=== PATIENT | female | born 2000 | race Caucasian/White ===

== ENCOUNTER 2020-05-29 12:14 | Emergency (ER) | payer MEDICAID ==
[~2020-05-29] VITALS: Ht 160 cm; Wt 65.9 kg
== END 2020-05-29 13:27 | disposition home or self-care (01) ==
LOC: ER 12:14
DX: R53.83 Other fatigue (principal); R51.9 Headache, unspecified; R05 Cough; M79.10 Myalgia, unspecified site; Z20.828 Contact with and (suspected) exposure to other viral communicable diseases; Z88.1 Allergy status to other antibiotic agents
CPT/HCPCS: 36415; 87635; 99283

== ENCOUNTER 2023-04-22 22:24 | Emergency (ER) | payer MEDICAID ==
[~2023-04-22] VITALS: Ht 157.5 cm; Wt 80.0 kg
[2023-04-22 22:26] VITALS: TEMP 98.5
[2023-04-22 22:45] LABS: BILIRUBIN,URINE NEGATIVE (Neg); CLARITY,URINE SLIGHTLY CLOUDY (Clear); COLOR,URINE YELLOW (Yellow); GLUCOSE, URINE NEGATIVE (Neg); KETONES,URINE TRACE mg/dl (Neg); LEUKOCYTE ESTERASE ,URINE NEGATIVE (Neg); NITRITES, URINE NEGATIVE (Neg); OCCULT BLOOD,URINE NEGATIVE (Neg); PROTEIN,URINE NEGATIVE (Neg); UROBILINOGEN,URINE 0.2 E.U/dL (0.2-1.0)
[2023-04-22 22:46] LABS: UA COLLECTION TYPE CLN CATCH MIDSTREAM; URINE HCG NEGATIVE (NEG)
[2023-04-22 22:52] LABS: BACTERIA,URINE FEW /HPF (Neg); MUCUS STRANDS MANY /LPF (Neg); RBC,URINE 0-2 /HPF (0-2); SQUAMOUS EPITHELIAL CELL,UR MODERATE /LPF (FEW); WBC,URINE 0-4 /HPF (0-4)
--- NOTE | 2023-04-22 22:56 | NUR ---
MSE COMPLETED BY DR WALTER
[2023-04-22 23:14] LABS: EOSINOPHILS # (AUTO) 0.1 X10'3 (0-0.9); HEMOGLOBIN 12.7 g/dl (12.0-16.0)
[2023-04-22 23:16] LABS: BASOPHILS % (AUTO) 0.5 % (0-1); EOSINOPHILS % (AUTO) 0.7 % (0-6); HEMATOCRIT 37.4 % (35.0-45.0); LYMPHOCYTES # (AUTO) 2.9 X10'3 (1.1-4.8); LYMPHOCYTES % (AUTO) 34.9 % (21-51); MEAN CORPUSCULAR HEMOGLOBIN 29.8 PG (27.0-31.0); MEAN CORPUSCULAR HGB CONC 34.1 g/dL (33.0-36.5); MEAN CORPUSCULAR VOLUME 87.4 FL (78-98); MEAN PLATELET VOLUME 10.4 FL (7.4-10.4); MONOCYTES # (AUTO) 0.6 X10'3 (0-0.9); MONOCYTES % (AUTO) 7.6 % (2-12); NEUTROPHILS # (AUTO) 4.6 X10'3 (1.8-7.7); NEUTROPHILS % (AUTO) 56.3 % (42-75); PLATELET COUNT 179 X10'3 (140-440); RED BLOOD COUNT 4.28 X10'6 (4.20-5.60); RED CELL DISTRIBUTION WIDTH 13.4 % (11.5-14.5); WHITE BLOOD COUNT 8.2 X10'3 (4.5-11.0)
[2023-04-22 23:20] LABS: APTT 31 SECONDS (22-32); PROTHROMBIN TIME 10.7 SECONDS (9.0-12.0)
[2023-04-22 23:23] LABS: ALANINE AMINOTRANSFERASE 28 U/L (12-78); ALBUMIN/GLOBULIN RATIO 1.1 (1.1-1.5); ALKALINE PHOSPHATASE 88 IU/L (46-116); ANION GAP 8 (8-16); ASPARTATE AMINO TRANSFERASE 28 U/L (10-37); BILIRUBIN,TOTAL 0.2 MG/DL (0.1-1.0); BLOOD UREA NITROGEN 16 MG/DL (7-18); BUN/CREATININE RATIO 16.8 (10.0-20.0); CHLORIDE 103 MMOL/L (99-107); CREATININE 0.95 MG/DL (0.40-0.90); GLUCOSE 113 MG/DL (70-104); POTASSIUM 3.9 MMOL/L (3.5-5.1); SODIUM 138 MMOL/L (135-145); TOTAL CARBON DIOXIDE 26.7 MMOL/L (24-32); TOTAL PROTEIN 7.5 G/DL (6.4-8.2); eCRCL 72 ML/MIN; eGFR 72 ML/MIN
[2023-04-23 01:07] VITALS: RESP 18
[2023-04-23 01:28] VITALS: BP 117/74; PULSE 78; O2SAT 99
== END 2023-04-23 01:30 | disposition home or self-care (01) ==
LOC: ER 22:24
DX: O72.2 Delayed and secondary postpartum hemorrhage (principal); R42 Dizziness and giddiness; R53.83 Other fatigue; Z88.0 Allergy status to penicillin
CPT/HCPCS: 36415; 76856; 80053; 81001; 81025; 85025; 85610; 85730; 86885; 86900; 86901; 93976; 99284

== ENCOUNTER 2023-07-16 22:11 | Emergency (ER) | payer MEDICAID ==
[~2023-07-16] VITALS: Ht 157.5 cm; Wt 68.2 kg
[2023-07-16 22:15] VITALS: BP 120/78; PULSE 83; RESP 16; TEMP 97.8; O2SAT 100
[2023-07-16] MEDS ORDERED: dexamethasone sod phosphate 10mg/ml inj IM STA (22:55)
[2023-07-16] MEDS ORDERED: HYDROcodone/acetaminophen 10/325mg tab PO ONE (22:55)
[2023-07-16] MEDS ORDERED: ketorolac trometh inj. 60 MG/2 ML VIAL IM ONE (22:55)
[2023-07-16] MEDS ORDERED: LIDO700A32 TOP (22:58)
[2023-07-16] MEDS ORDERED: HYDR-3965 PO (22:58)
== END 2023-07-16 23:14 | disposition home or self-care (01) ==
LOC: ER 22:12
DX: M75.102 Unspecified rotator cuff tear or rupture of left shoulder, not specified as traumatic (principal); Z88.0 Allergy status to penicillin; Z79.899 Other long term (current) drug therapy
CPT/HCPCS: 73030; 96372; 99284; J1100; J1885

== ENCOUNTER → 2023-09-29 | Outpatient (CLI) | payer MEDICAID ==
[~2023-09-29] MED LIST: HYDR-3965 PO; LIDO700A32 TOP
== END | disposition home or self-care (01) ==
LOC: MRI 08:28
PROVIDERS: ATTEND Student in an Organized Health Care Education/Training Program
DX: M19.012 Primary osteoarthritis, left shoulder (principal); M75.82 Other shoulder lesions, left shoulder; M25.512 Pain in left shoulder
CPT/HCPCS: 73221

== ENCOUNTER 2023-12-16 10:15 | Emergency (ER) | payer MEDICAID ==
[~2023-12-16] VITALS: Ht 160 cm; Wt 81.9 kg
[2023-12-16 10:18] VITALS: BP 118/80; PULSE 96; O2SAT 97
[2023-12-16 11:09] VITALS: RESP 17; TEMP 98.6
== END 2023-12-16 11:12 | disposition home or self-care (01) ==
LOC: ER 10:15
DX: M53.3 Sacrococcygeal disorders, not elsewhere classified (principal); Z88.0 Allergy status to penicillin; Z79.899 Other long term (current) drug therapy; Z98.890 Other specified postprocedural states
CPT/HCPCS: 72220; 99283

== ENCOUNTER 2024-02-27 22:25 | Emergency (ER) | payer MEDICAID ==
[~2024-02-27] VITALS: Ht 157.5 cm; Wt 80.0 kg
[2024-02-28] MEDS: normal saline 1000ML IV soln IVB ONE (00:31)
[2024-02-28] MEDS: ketorolac trometh 30MG/ML vial 30 MG/ML VIAL IV ONE (00:31)
[2024-02-28 01:37] LABS: BILIRUBIN,URINE NEGATIVE (Neg); CLARITY,URINE SLIGHTLY CLOUDY (Clear); COLOR,URINE YELLOW (Yellow); GLUCOSE, URINE NEGATIVE (Neg); KETONES,URINE NEGATIVE (Neg); LEUKOCYTE ESTERASE ,URINE SMALL (Neg); NITRITES, URINE NEGATIVE (Neg); OCCULT BLOOD,URINE NEGATIVE (Neg); PH,URINE 7.5 (4.8-8.0); PROTEIN,URINE NEGATIVE (Neg); UROBILINOGEN,URINE 0.2 E.U/dL (0.2-1.0)
[2024-02-28 01:41] LABS: UA COLLECTION TYPE CLN CATCH MIDSTREAM
[2024-02-28 01:44] LABS: URINE HCG NEGATIVE (NEG)
[2024-02-28 01:51] VITALS: PULSE 99
[2024-02-28 01:57] LABS: BACTERIA,URINE FEW /HPF (Neg); RBC,URINE 0-2 /HPF (0-2); SQUAMOUS EPITHELIAL CELL,UR FEW /LPF (FEW); WBC,URINE 0-4 /HPF (0-4)
[2024-02-28 02:11] VITALS: BP 115/69; RESP 16; TEMP 98.9; O2SAT 99
== END 2024-02-28 02:34 | disposition home or self-care (01) ==
LOC: ER 22:25
DX: R51.9 Headache, unspecified (principal); B34.9 Viral infection, unspecified; Z88.0 Allergy status to penicillin; Z79.899 Other long term (current) drug therapy; Z98.890 Other specified postprocedural states; Z20.822 Contact with and (suspected) exposure to COVID-19
CPT/HCPCS: 36415; 81001; 81025; 87088; 87811; 96361; 96374; 99283; J1885; J7030

== ENCOUNTER 2025-01-20 14:04 | Emergency (ER) | payer MEDICAID ==
[~2025-01-20] VITALS: Ht 157.5 cm; Wt 73.6 kg
[~2025-01-20 14:04] MED LIST changes: +LIDO-52 TOP; -LIDO700A32 TOP
[2025-01-20 14:05] VITALS: BP 135/80; PULSE 98; RESP 16; TEMP 97.4; O2SAT 99
--- NOTE | 2025-01-20 14:41 | Physician Documentation ---
History of Present Illness ~ Chief Complaint: Constipation Stated Complaint: CONSTIPATION ABD PAIN Time Seen by MD: 14:34 OK to notify your PCP?: Yes Primary Medical Doctor: [facility] Source: patient Mode of Arrival: POV Exam Limitations: no limitations HPI 24-year-old female presents for constipation for the past week. She states she normally has a bowel movement 4 days. She says she has been having chronic constipation for the past 2 years after the of her 2nd son. She attempted to use MiraLax [id number] on multiple days with no relief. She denies any nausea vomiting or diarrhea. She has occasional lower abdominal cramping. She consumes approximately 120 oz of water daily. Does not take any opiate medications. Medication Reconciliation Allergies: Coded Allergies: penicillin G (Verified Allergy, Severe, 01/20/25) Scheduled Bisacodyl (Dulcolax), 2 TAB PO UD Lidocaine (Lidoderm), 1 PATCH TOP DAILY Scheduled PRN Hydrocodone Bit/Acetaminophen 5/325 MG ([place] 5/325 MG), 1 TAB PO Q12H PRN PRN for pain Past Medical History Past Medical History: No Pertinent History Past Surgical History: Alcohol Use: None Drug Use: none Lives with: Family Lives In: Home Occupation: student Review of Systems All Other Systems at this time: Reviewed and Negative Physical Exam Vital Signs: RN Vital Signs have been reviewed: Yes, Temperature: 97.4, Source: Temporal, Heart Rate: 98, Respiratory Rate: 16, BP: 135/80, Pulse Oximetry: 99, Weight: 73.640 Oxygen Flow Rate: 0 Pulse Oximetry Reflects: adequate oxygenation Physical Exam General: Alert, no apparent distress. HEENT: PERRL, EOMI, no injection, moist mucous membranes. Neck: Full range of motion. Respiratory: Lungs clear, no respiratory distress. Chest: No accessory muscle use. Cardiovascular: Regular rate and rhythm, no murmurs. Gastrointestinal: Soft, nontender, nondistended. Bowels sounds present. Extremities: Normal range of motion, no deformity. Neurologic: Oriented x4. Psychiatric: Normal mood and affect. Skin: Normal color, warm and dry. No edema, no ecchymosis. Progress Results/Orders Reviewed/noted all lab results: Yes Results/Orders Vital Signs 01/20/25 14:05 Temp 97.4 Pulse 98 Resp 16 B/P (MAP) 135/80 Pulse Ox 99 O2 Flow Rate 0 Medical Decision Making Additional info obtained from: old records Findings 24-year-old female with constipation for the past week. She tried taking MiraLax. We discussed that she needs to increase her water intake. Take Metamucil/ psyllium husk and increase fiber rich foods. I prescribed her bisacodyl and send it to her pharmacy. We discussed that she can take this medication with the counter as well. Her physical exam is remarkable and her vital signs are stable. Diff Dx N/V/D:Considerations: Include: Appendicitis, Bowel obstruction, Gastroenteritis, GI bleed, Hernia, Impaction Departure Disposition: HOME / SELF CARE / HOMELESS Impression: Primary Impression: Constipation Condition: Stable Discharge Instructions: Constipation, Adult Additional Instructions: Please continue drinking plenty of water, eat increased fiber foods. Take Metam ucil [id number] daily. If this constipation trend continues, she may benefit from seeing a GI specialist. Return back here for any new or worsening symptoms. Referrals: NO PRIMARY CARE PROVIDER (PCP) Prescriptions Bisacodyl (Dulcolax) 5 Mg Tablet.dr 2 TAB PO UD for constipation for 1 Day, #2 TAB 0 Refills Prov: KAYLA JOHNSON 01/20/25 Education Educated: Patient Educated regarding: diagnosis, treatment, prognosis, need for follow up Additional Comment Medical Screen Exam This patient recieved a medical screening examination. After reviewing the individual's medical complaints with presenting symptoms and performing an appropriate physical examination, it was determined that no immediate life- threatening emergency medical condition is present. This individual is also not a women having contractions. Signature Scribe Signature: . Attestation: Scribed for Kayla Johnson by Kayla Martin NP . 01/20/25 14:55 Parts of this note were created using [employer] voice recognition software program. While efforts were made to correct any mistakes made by this voice recognition software program, nonsensical phrases may remain in this note. In addition, there may be errors and syntax, grammar, content and spelling. KAYLA JOHNSON Jan 20, 2025 14:40
[2025-01-20] MEDS ORDERED: BISA-155 PO (14:51)
== END 2025-01-20 14:59 | disposition home or self-care (01) ==
LOC: ER 14:05
DX: K59.00 Constipation, unspecified (principal); Z88.0 Allergy status to penicillin
CPT/HCPCS: 99282